=== PATIENT | female | born 1935 | race Caucasian/White ===

== ENCOUNTER 2021-06-02 09:11 | Inpatient (IN) | payer MEDICARE ==
[2021-06-02 10:36] LABS: #Lymphocytes 0.9 thou/uL (1.20-3.40); #Neutrophils 13.1 thou/uL (1.40-6.50); %Eosinophils 0.2 % (0.0-10.0); %Lymphocytes 5.8 % (21.0-51.0); %Monocytes 6.8 % (0.0-10.0); %Neutrophils 87.2 % (42.0-75.0); Hemoglobin 10.2 g/dL (12.0-16.0); Mean Corpuscular HGB CONC 31.9 g/dL (32.0-36.0); Mean Corpuscular Hemoglobin 31.9 pg (27.0-31.0); Mean Corpuscular Volume 99.9 fL (78.0-98.0); Mean Platelet Volume 7.3 fL (7.4-10.4); Platelet Count 246 thou/uL (130-400); RBC Distribution Width 11.8 % (11.5-14.5)
[2021-06-02 11:01] LABS: ALT (SGPT) 8 U/L (8-55); AST (SGOT) 26 U/L (5-34); Alkaline Phosphatase 76 U/L (40-110); Anion Gap 14 mmol/L (10-20); BUN (Urea Nitrogen) 43 mg/dL (9.8-20.1); Bilirubin, Total 0.7 mg/dL (0.2-1.2); CK (CPK) 972 U/L (29-168); Calc. Creatinine Clearance 0 mL/min (70-130); Calcium 11.2 mg/dL (7.8-10.44); Carbon Dioxide 24 mmol/L (23-31); Chloride 98 mmol/L (98-107); Globulin 3.2 g/dL (2.4-3.5); Glucose 113 mg/dL (83-110); Potassium 4.1 mmol/L (3.5-5.1); Protein, Total 7.2 g/dL (5.8-8.1); Sodium 132 mmol/L (136-145)
[2021-06-02 11:31] LABS: CKMB 11.2 ng/mL (0-6.6)
[2021-06-02] MEDS ORDERED: Aspirin 325 MG TAB ONE (11:37)
[2021-06-02] MEDS ORDERED: Aspirin Chewable 81 MG TAB ONE (11:39)
[2021-06-02 11:56] LABS: Bilirubin Negative (Negative); Blood, Urine 2+ (Negative); Clarity Turbid (Clear); Glucose, Urine (Dipstick) Normal (Negative); Ketone, Urine Negative (Negative); Leukocyte 500 Leu/uL (Negative); Nitrite Negative (Negative); Protein, Urine (Dipstick) 50 mg/dL (Neg-Trace); Specific Gravity, Urine 1.019 (1.002-1.036); Urobilinogen Normal mg/dL (Less than 2); pH, Urine 5.5 (5.0-9.0)
[2021-06-02 12:16] LABS: Bacteria/HPF 1+ HPF (None Seen)
[2021-06-02 12:18] LABS: Renal Epithelial 0-3 HPF (None Seen); Transitional Epithelial 0-3 HPF (None Seen)
[2021-06-02] MEDS ORDERED: Haloperidol Lactate 5 MG/ML VIAL ONE (12:42)
[2021-06-02] MEDS ORDERED: cefTRIAXone\\ROCEPHIN 2 GM VIAL ONE (13:29)
[2021-06-02] MEDS ORDERED: Acetaminophen 650 MG Suppository PR PRN (14:37)
[2021-06-02] MEDS ORDERED: Ondansetron ODT 4 MG TAB PO PRN (14:37)
[2021-06-02] MEDS ORDERED: Sodium Chloride 0.9% 1,000 ML IV SCH (14:45)
[2021-06-02 15:20] LABS: Magnesium 2.2 mg/dL (1.6-2.6); Phosphorus 3.1 mg/dL (2.3-4.7); Uric Acid 9.2 mg/dL (2.6-6.0)
[2021-06-02 15:22] LABS: CKMB 2.7 ng/mL (0-6.6)
[2021-06-02 16:24] LABS: Creatinine, Urine 131.94 mg/dL (47-110)
[2021-06-02 17:08] VITALS: BMI 19.8
[2021-06-02] MEDS ORDERED: OLANZapine 10 MG VIAL IM SCH (18:30)
[2021-06-02 20:04] LABS: Troponin I 3.083 ng/mL (< 0.028)
[2021-06-02 23:08] LABS: Troponin I 3.291 ng/mL (< 0.028)
[2021-06-03] MEDS ORDERED: Labetalol HCl 100 MG/20 ML VIAL SLOW IVP SCH (00:45)
[2021-06-03 02:15] LABS: Critical Call Chem Troponin I RESULT DECREASING; Troponin I 2.438 ng/mL (< 0.028)
[2021-06-03 04:42] LABS: #Lymphocytes 0.8 thou/uL (1.20-3.40); #Monocytes 1.1 thou/uL (0.11-0.59); #Neutrophils 9.8 thou/uL (1.40-6.50); %Eosinophils 0.1 % (0.0-10.0); %Lymphocytes 6.8 % (21.0-51.0); %Monocytes 9.8 % (0.0-10.0); %Neutrophils 83.4 % (42.0-75.0); Hemoglobin 11.4 g/dL (12.0-16.0); Mean Corpuscular Hemoglobin 32.9 pg (27.0-31.0); Mean Corpuscular Volume 99.8 fL (78.0-98.0); Mean Platelet Volume 6.9 fL (7.4-10.4); Platelet Count 210 thou/uL (130-400); RBC Distribution Width 11.8 % (11.5-14.5); Red Blood Cell (RBC) Count 3.45 mill/uL (4.20-5.40); White Blood Cell (WBC) Count 11.7 thou/uL (4.8-10.8)
[2021-06-03 04:58] LABS: ALT (SGPT) 9 U/L (8-55); AST (SGOT) 39 U/L (5-34); Albumin 3.6 g/dL (3.4-4.8); Alkaline Phosphatase 75 U/L (40-110); Anion Gap 17 mmol/L (10-20); BUN (Urea Nitrogen) 28 mg/dL (9.8-20.1); Bilirubin, Total 0.7 mg/dL (0.2-1.2); CK (CPK) 1009 U/L (29-168); Calc. Creatinine Clearance 32 mL/min (70-130); Calcium 10.3 mg/dL (7.8-10.44); Carbon Dioxide 18 mmol/L (23-31); Cardiac Risk 2.5 (Less than 4.5); Chloride 101 mmol/L (98-107); Cholesterol 195 mg/dl (< 200 Desired); Glucose 78 mg/dL (83-110); HDL Cholesterol 78 mg/dL (>60 Neg Risk); LDL Cholesterol, Calculated 102 mg/dL; Potassium 3.2 mmol/L (3.5-5.1); Protein, Total 6.6 g/dL (5.8-8.1); Sodium 133 mmol/L (136-145); Triglycerides 74 mg/dL (Less than 150)
[2021-06-03] MEDS: Lisinopril 20 MG TAB PO SCH (08:36)
[2021-06-03] MEDS: Aspirin 81 mg Enteric Coated Tablet PO SCH (08:36)
[2021-06-03] MEDS ORDERED: Potassium Chloride 20 MEQ TAB PO SCH (11:45)
[2021-06-03] MEDS: Sodium Chloride 0.9% 1,000 ML IV SCH (12:36)
[2021-06-03] MEDS: cefTRIAXone\\ROCEPHIN 1 GM in Sodium Chloride 0.9% 100 ML IVPB SCH (12:37)
[2021-06-03] MEDS: Acetaminophen 325 MG TAB PO PRN (23:36)
[2021-06-04 04:34] LABS: Anion Gap 14 mmol/L (10-20); BUN (Urea Nitrogen) 27 mg/dL (9.8-20.1); Calc. Creatinine Clearance 30 mL/min (70-130); Calcium 10.1 mg/dL (7.8-10.44); Carbon Dioxide 21 mmol/L (23-31); Chloride 103 mmol/L (98-107); Glucose 86 mg/dL (83-110); Potassium 3.6 mmol/L (3.5-5.1); Sodium 134 mmol/L (136-145)
[2021-06-04] MEDS: Sodium Chloride 0.9% 1,000 ML IV SCH (04:37)
[2021-06-04] MEDS: Aspirin 81 mg Enteric Coated Tablet PO SCH (09:00)
[2021-06-04] MEDS: Lisinopril 20 MG TAB PO SCH (09:00)
[2021-06-04] MEDS: cefTRIAXone\\ROCEPHIN 1 GM in Sodium Chloride 0.9% 100 ML IVPB SCH (13:13)
[2021-06-04] MEDS: Ciprofloxacin 500 MG TAB PO SCH (20:33)
[2021-06-05] MEDS: Acetaminophen 325 MG TAB PO PRN (00:06)
[2021-06-05] MEDS: Ciprofloxacin 500 MG TAB PO SCH (05:43)
[2021-06-05] MEDS: Lisinopril 20 MG TAB PO SCH (08:20)
[2021-06-05] MEDS: Aspirin 81 mg Enteric Coated Tablet PO SCH (08:20)
[2021-06-05] MEDS ORDERED: Saccharomyces boulardii 250 MG CAP PO SCH (09:00)
[2021-06-05] MEDS ORDERED: hydrALAZINE 20 MG/ML VIAL SLOW IVP PRN (11:37)
[2021-06-05 16:26] VITALS: BP 166/71; TEMP 98.2
== END 2021-06-05 15:40 | DRG 689 ==
LOC: ERS 09:11 → ERHOLD 13:54 → 2NO 16:10
PROVIDERS: ADMIT Internal Medicine; ATTEND Internal Medicine
DX: N39.0 Urinary tract infection, site not specified (principal); Z66 Do not resuscitate; G93.41 Metabolic encephalopathy; I21.A1 Myocardial infarction type 2; N17.9 Acute kidney failure, unspecified; E87.1 Hypo-osmolality and hyponatremia; M62.82 Rhabdomyolysis; I10 Essential (primary) hypertension; F03.90 Unspecified dementia, unspecified severity, without behavioral disturbance, psychotic disturbance, mood disturbance, and anxiety; I25.10 Atherosclerotic heart disease of native coronary artery without angina pectoris; F32.A Depression, unspecified; B96.20 Unspecified Escherichia coli [E. coli] as the cause of diseases classified elsewhere; B96.5 Pseudomonas (aeruginosa) (mallei) (pseudomallei) as the cause of diseases classified elsewhere; K21.9 Gastro-esophageal reflux disease without esophagitis; Z96.641 Presence of right artificial hip joint; Z96.652 Presence of left artificial knee joint; F17.210 Nicotine dependence, cigarettes, uncomplicated; M25.551 Pain in right hip; E87.6 Hypokalemia; Z95.5 Presence of coronary angioplasty implant and graft; Z90.710 Acquired absence of both cervix and uterus; Z82.49 Family history of ischemic heart disease and other diseases of the circulatory system; Z81.8 Family history of other mental and behavioral disorders; Z79.899 Other long term (current) drug therapy; Z79.82 Long term (current) use of aspirin
CPT/HCPCS: 36415; 36416; 51701; 70450; 71045; 72170; 72192; 76770; 80048; 80053; 80061; 81003; 81015; 82550; 82553; 82570; 83735; 83880; 84100; 84443; 84484; 84540; 84550; 85025; 87077; 87086; 87186; 93005; 93010; 93306; 96365; 96372; J0360; J0696; J1630; J2358; J3490; J7050